=== PATIENT | female | born 1975 | race Caucasian/White ===

== ENCOUNTER 2020-05-02 19:56 | Emergency (ER) | payer OTHER ==
[~2020-05-02] VITALS: Ht 157.5 cm; Wt 79.5 kg
[2020-05-02 20:43] VITALS: BP 136/99
--- NOTE | 2020-05-02 20:58 | PHYS DOC ---
Past History Past Medical History: No Pertinent History Additional Past Medical Histor: PCOS Additional Past Surgical Histo: OVARIAN CYST CAUTERIZATION Alcohol Use: Rarely General Adult EDM: Chief Complaint: PELVIC PAIN HPI: HPI: The history was obtained from the patient. Patient is a 44-year-old female with PMH ovarian cyst who presents with a chief complaint of left lower quadrant abdominal pain. Patient states the pain began approximately 60 hours prior to arrival. States the pain is located in her left lower quadrant it is nonradiating. States pain is sharp. She states Motrin and Tylenol helped her pain throughout the day but the pain became worse after moving all day. She knows she has had surgeries in the past for ovarian cyst. Denies any vaginal bleeding or discharge. States first day of her last menstrual period was April 09. Denies any dysuria, hematuria, or polyuria. She denies any changes to her stool caliber or consistency. Denies any concern for STD. Denies objective fevers. No other complaints. Review of Systems: Review of Systems: Constitutional: Denies fever or chills Eyes: Denies change in visual acuity HENT: Denies nasal congestion or sore throat Respiratory: Denies cough or shortness of breath Cardiovascular: Denies chest pain or edema GI: Positive for abdominal pain : Denies dysuria Musculoskeletal: Denies back pain or joint pain Integument: Denies rash Neurologic: Denies headache, focal weakness or sensory changes Endocrine: Denies polyuria or polydipsia Lymphatic: Denies swollen glands Psychiatric: Denies depression or anxiety Heart Score: Risk Factors: Risk Factors: DM, Current or recent (<one month) smoker, HTN, HLP, family history of CAD, obesity. Risk Scores: Score 0 - 3: 2.5% MACE over next 6 weeks - Discharge Home Score 4 - 6: 20.3% MACE over next 6 weeks - Admit for Clinical Observation Score 7 - 10: 72.7% MACE over next 6 weeks - Early Invasive Strategies Allergies: Allergies: Allergies Coded Allergies Type Severity Reaction Last Updated Verified No Known Drug Allergies 05/02/20 No Physical Exam: PE: Constitutional: Well developed, well nourished, no acute distress, non-toxic appearance. [] HENT: Normocephalic, atraumatic, bilateral external ears normal, oropharynx moist, no oral exudates, nose normal. [] Eyes: PERRLA, EOMI, conjunctiva normal, no discharge. [] Neck: Normal range of motion, no tenderness, supple, no stridor. [] Cardiovascular:Heart rate regular rhythm, no murmur [] Lungs & Thorax: Bilateral breath sounds clear to auscultation [] Abdomen: Minimal left lower quadrant tenderness to palpation. No involuntary guarding or rigidity noted. No acute peritonitis. Skin: Warm, dry, no erythema, no rash. [] Back: No tenderness, no CVA tenderness. [] Extremities: No tenderness, no cyanosis, no clubbing, ROM intact, no edema. [] Neurologic: Alert and oriented X 3, normal motor function, normal sensory function, no focal deficits noted. [] Psychologic: Affect normal, judgement normal, mood normal. [] Current Patient Data: Labs: Laboratory Tests Test 05/02/20 21:00 05/02/20 21:59 05/02/20 22:00 Urine Collection Type Void Urine Color Yellow Urine Clarity Cloudy Urine pH 5.5 Urine Specific [place] >=1.030 Urine Protein Neg Urine Glucose (UA) Neg mg/dL Urine Ketones (Stick) Neg mg/dL Urine Blood Large Urine Nitrite Neg Urine Bilirubin Neg Urine Urobilinogen Dipstick 0.2 mg/dL Urine Leukocyte Esterase Trace Urine RBC >40 /HPF Urine WBC 1-4 /HPF Urine Squamous Epithelial Cells Mod /LPF Urine Bacteria Few /HPF Urine Mucus Slight /LPF Bedside Urine HCG, Qualitative hcg negative White Blood Count 7.8 x10^3/uL Red Blood Count 4.64 x10^6/uL Hemoglobin 13.4 g/dL Hematocrit 39.9 % Mean Corpuscular Volume 86 fL Mean Corpuscular Hemoglobin 29 pg Mean Corpuscular Hemoglobin Concent 34 g/dL Red Cell Distribution Width 14.2 % Platelet Count 296 x10^3/uL Neutrophils (%) (Auto) 65 % Lymphocytes (%) (Auto) 28 % Monocytes (%) (Auto) 6 % Eosinophils (%) (Auto) 1 % Basophils (%) (Auto) 0 % Neutrophils # (Auto) 5.1 x10^3uL Lymphocytes # (Auto) 2.2 x10^3/uL Monocytes # (Auto) 0.4 x10^3/uL Eosinophils # (Auto) 0.1 x10^3/uL Basophils # (Auto) 0.0 x10^3/uL Sodium Level 138 mmol/L Potassium Level 3.7 mmol/L Chloride Level 105 mmol/L Carbon Dioxide Level 22 mmol/L Anion Gap 11 Blood Urea Nitrogen 17 mg/dL Creatinine 0.9 mg/dL Estimated GFR (Cockcroft-Gault) 68.7 BUN/Creatinine Ratio 19 Glucose Level 150 mg/dL Calcium Level 8.6 mg/dL Total Bilirubin 0.2 mg/dL Aspartate Amino Transf (AST/SGOT) 6 U/L Alanine Aminotransferase (ALT/SGPT) 46 U/L Alkaline Phosphatase 78 U/L Total Protein 6.7 g/dL Albumin 3.6 g/dL Albumin/Globulin Ratio 1.2 Lipase 176 U/L Current Medications Medications (Trade) Dose Ordered Sig/Purnima Route PRN Reason Start Time Stop Time Status Last Admin Dose Admin Ketorolac Tromethamine (Toradol 15mg Vial) 15 mg 1X ONCE IVP 05/02/20 22:30 05/02/20 22:31 DC 05/02/20 22:40 Vital Signs: Vital Signs Date Time Temp Pulse Resp B/P (MAP) Pulse Ox O2 Delivery O2 Flow Rate FiO2 05/02/20 20:43 99.1 86 20 136/99 (111) 97 Room Air EKG: EKG: [] Radiology/Procedures: Radiology/Procedures: [address] [address] IMAGING REPORT Signed PATIENT: MARTIR NGO TACCOUNT: [id number] : 1975 LOCATION: ER AGE: 44 SEX: F EXAM STATUS: REG ER ORD. PHYSICIAN: ZANE MCFARLAND DO REASON: LLQ pain PROCEDURE: TRANSVAGINAL TRANSVAGINAL History: Reason: LLQ pain / Spl. Instructions: / History: Comparison: None. Technique: Grayscale and color Doppler imaging of the pelvis was performed using transvaginal technique. Findings: The uterus measures 5.6 x 4.7 x 3.6 cm. Nabothian cysts noted. The endometrial stripe measures 5.8 mm. Right ovary measures 3.3 x 3.1 x 2.8 cm. Involuting right ovarian follicle measures 2.2 cm. Left ovary measures 3.1 x 1.8 x 1.6 cm. Normal Doppler flow to the ovaries. No adnexal masses are seen. Small pelvic free fluid. IMPRESSION: 1. Involuting right ovarian follicle, may represent recently ruptured hemorrhagic cyst. 2. Small pelvic free fluid. Electronically signed by: Chinedu Ochoa DO (05/02/2020 10:41 PM) [facility] DICTATED AND SIGNED BY: CHINEDU OCHOA DO DATE: 05/02/202240 CC: PCP,UNKNOWN; ZANE MCFARLAND DO ~ [] Course & Med Decision Making: Course & Med Decision Making Pertinent Labs and Imaging studies reviewed. (See chart for details) [] Patient is a 44-year-old female who presents with chief complaint of lower abdominal discomfort. Ultrasound imaging does show involuted right follicle on the right ovary. Labs unremarkable. Urine without evidence of infection, however large blood noted. On repeat examination her pain is resolved. Her abdomen is without any tenderness to palpation. She has tolerated p.o. She is requesting discharge home. I do feel this is reasonable. I did discuss the possibility of obtaining CAT scan imaging given blood found in her stool her symptoms could be related to kidney stone however the patient would like to defer this as she states her symptoms have resolved and she has a history of ovarian cyst and this feels similar. I do think this is an appropriate approach. Normal kidney function. No evidence of urinary she was given strict 12 to 24-hour return precautions. She declined any medication at home. Instructed to follow-up with her primary care physician in the next 2 to 3 days. Stable for discharge home. Nieves Disclaimer: Nieves Disclaimer: This electronic medical record was generated, in whole or in part, using a voice recognition dictation system. Departure Departure: Impression: Primary Impression: Lower abdominal pain Disposition: HOME/RESIDENCE PRIOR TO ADM Condition: STABLE Referrals: PCP,UNKNOWN (PCP) Patient Instructions: Ovarian Cyst Additional Instructions: Discharge Abdominal Pain Re-Check Precautions: I'm unsure of the specific cause of your abdominal pain. However, at this point I feel that you are low risk for a life threatening emergency and that discharge from the Emergency Department is safe. There is a very small possibility that you are just too early in your clinical course for our physical exam/labs/imaging to ascertain whether or not you have an emergent condition that could potentially cause permanent disability or be life threatening. As such, it is very important that you follow up with your primary doctor or return to the Emergency Department in 12-24 hours for re-assessment and further evaluation if clinically indicated. If you develop new or worsening symptoms then you should return to the Emergency Department immediately. Home Care Instructions: Abdominal Pain Many things may cause abdominal pain. Your ER visit might not show the exact reason you are having pain. In some cases, additional time is needed to determine if the cause is serious. Therefore you may be told to go home and watch for any changes or worsening in your condition. Before that, we may not know if you need more testing, or if hospitalization or surgery is necessary. If its not something serious, the pain may go away without treatment or get better with simple things like avoiding certain foods or medications. In the ER, your doctor asks you questions, examines you and in some cases, may order tests. These help doctors decide if the pain is from something serious. Tests are not always done and may not provide a definite answer. There can still be a problem, even with normal test results. Abdominal pain may be caused by something serious (like appendicitis), which is not obvious right away. Because of this, another checkup is needed to make sure you are OK. It is VERY IMPORTANT to follow up for a repeat exam, especially if you have any symptoms that are not going away or are getting worse. We recommend that you RETURN TO THE EMERGENCY ROOM IN 8-12 HOURS to be rechecked. If you cannot, you may follow up with your primary care doctor or clinic. It is important that you follow all of the instructions below. RETURN TO THE EMERGENCY ROOM IMMEDIATELY IF: The pain does not go away or gets worse. You have a fever. You keep throwing up and cannot keep anything down. You pass bloody or black stools. You develop new symptoms. HOME CARE INSTRUCTIONS Come back to the ER (or see your doctor) in 8-12 hours. DO NOT take laxatives unless directed by your doctor. Avoid the use of alcohol Take pain medicine only as directed by your doctor. Only take [id number] or prescription medicine as directed by your doctor. Try a clear liquid diet (broth, tea, jello, water) for the next 12-24 hours. Slowly move to a bland diet as tolerated. Do not eat greasy, fatty or spicy foods. Once you start getting better, go back to a normal, healthy diet, slowly over a few days. DISCHARGE PT INSTRUCTIONS: YOU HAVE BEEN EVALUATED FOR ABDOMINAL PAIN. HOWEVER, WE ARE UNABLE TO PROVIDE A DEFINITE CAUSE OF YOUR SYMPTOMS. EVEN THOUGH YOUR TESTS MAY HAVE BEEN NORMAL, YOU STILL COULD HAVE A SERIOUS CAUSE FOR YOUR ABDOMINAL PAIN, INCLUDING APPENDICITIS. THE BEST TEST TO DETERMINE IF YOU HAVE A SERIOUS CAUSE IS RE-EXAMINATION OVER TIME. WE USED TO ADMIT PATIENTS TO THE HOSPITAL FOR THIS, BUT CAN NOW ALLOW YOU TO GO HOME, & RETURN TO OUR ER THE NEXT DAY FOR RE- EXAMINATION. THUS, WE WOULD LIKE YOU TO RETURN TO OUR ER TOMORROW FOR YOUR RE- EVALUATION. (IF YOUR SYMPTOMS HAVE GONE AWAY, THEN YOU DO NOT NEED TO RETURN.) IF YOUR SYMPTOMS GET WORSE BETWEEN NOW & THEN, YOU SHOULD RETURN IMMEDIATELY & NOT WAIT UNTIL TOMORROW. SYMPTOMS TO LOOK FOR WORSENING PAIN, HIGH FEVER, PERSISTENT VOMITING not controlled with [id number] medications, AND/OR OVERALL WORSENING OF YOUR CONDITION. Justification of Admission: Justification of Admission: Justification of Admission Dx: N/A ZANE MCFARLAND DO May 02, 2020 20:58
[2020-05-02 22:13] LABS: BILIRUBIN,URINE NEG (NEG); CLARITY,URINE CLOUDY; COLOR,URINE YELLOW; GLUCOSE,URINE NEG (NEG)
[2020-05-02 22:14] LABS: BACTERIA,URINE FEW /HPF (0-FEW); NITRITE,URINE NEG (NEG); RBC,URINE >40 /HPF (0-2); SQUAMOUS EPITHELIAL CELL,UR MOD /LPF; UROBILINOGEN,URINE 0.2 mg/dL (0.2 mg/dL)
[2020-05-02 22:24] LABS: BASO % 0 % (0-3); EOS # 0.1 x10^3/uL (0.0-0.7); EOS % 1 % (0-3); HEMATOCRIT 39.9 % (36.0-47.0); HEMOGLOBIN 13.4 g/dL (12.0-15.5); LYMPH # 2.2 x10^3/uL (1.0-4.8); LYMPH % 28 % (24-48); MEAN CORPUSCULAR HEMOGLOBIN 29 pg (25-35); MEAN CORPUSCULAR HGB CONC 34 g/dL (31-37); MEAN CORPUSCULAR VOLUME 86 fL (79-100); MONO # 0.4 x10^3/uL (0.0-1.1); MONO % 6 % (0-9); NEUT # 5.1 x10^3uL (1.8-7.7); NEUT % 65 % (31-73); PLATELET COUNT 296 x10^3/uL (140-400); RED BLOOD COUNT 4.64 x10^6/uL (3.50-5.40); RED CELL DISTRIBUTION WIDTH 14.2 % (11.5-14.5); WHITE BLOOD COUNT 7.8 x10^3/uL (4.0-11.0)
[2020-05-02 22:29] LABS: CALCIUM 8.6 mg/dL (8.5-10.1); CREATININE 0.9 mg/dL (0.6-1.0); GFR 68.7; POTASSIUM 3.7 mmol/L (3.5-5.1)
[2020-05-02] MEDS ORDERED: KETOROLAC 15 MG/ML VIAL. IVP ONE (22:30)
[2020-05-02 22:35] LABS: ALBUMIN 3.6 g/dL (3.4-5.0); ALBUMIN/GLOBULIN RATIO 1.2 (1.0-1.7); TOTAL BILIRUBIN 0.2 mg/dL (0.2-1.0); TOTAL PROTEIN 6.7 g/dL (6.4-8.2)
--- NOTE | 2020-05-02 22:44 | RAD ---
TRANSVAGINAL History: Reason: LLQ pain / Spl. Instructions: / History: Comparison: None. Technique: Grayscale and color Doppler imaging of the pelvis was performed using transvaginal technique. Findings: The uterus measures 5.6 x 4.7 x 3.6 cm. Nabothian cysts noted. The endometrial stripe measures 5.8 mm. Right ovary measures 3.3 x 3.1 x 2.8 cm. Involuting right ovarian follicle measures 2.2 cm. Left ovary measures 3.1 x 1.8 x 1.6 cm. Normal Doppler flow to the ovaries. No adnexal masses are seen. Small pelvic free fluid. IMPRESSION: 1. Involuting right ovarian follicle, may represent recently ruptured hemorrhagic cyst. 2. Small pelvic free fluid. Electronically signed by: Chinedu Ochoa DO (05/02/2020 10:41 PM) [facility]
== END 2020-05-02 23:30 | disposition home or self-care (01) ==
LOC: ER 19:56
DX: R10.32 Left lower quadrant pain (principal); E28.2 Polycystic ovarian syndrome
CPT/HCPCS: 36415; 76830; 80053; 81001; 81025; 83690; 85025; 87086; 96374; 99284; J1885